=== PATIENT | male | born 1945 | race Caucasian/White ===

== ENCOUNTER 2017-07-10 16:59 | Emergency (ER) | payer OTHER ==
[~2017-07-10] VITALS: Ht 185.4 cm; Wt 88.5 kg
[2017-07-10] MEDS ORDERED: SINGULAIR 10 MG10 M1 PO (17:08)
[2017-07-10] MEDS ORDERED: FOSINOPRIL 10 M10 M1 PO (17:08)
[2017-07-10] MEDS ORDERED: ACYCLOVIR 400400 MG PO (17:08)
[2017-07-10] MEDS ORDERED: LIPITOR 20 MG T20 M1 PO (17:08)
[2017-07-10] MEDS ORDERED: UNICOMPLEX M TA1 TA1 PO (17:09)
[2017-07-10 17:23] LABS: HEMATOCRIT 39.7 % (42.0-52.0); HEMOGLOBIN 13.6 gm/dL (14.0-18.0); MCH 31.9 pg (26.0-34.0); MCHC 34.2 g/dL (28.0-37.0); MCV 93.2 fL (80.0-100.0); NUCLEATED RBCS 0 /100WBC; PLATELET COUNT* 188 thou/uL (150-400); RBC 4.26 mil/uL (4.50-6.00); RDW-CV 13.2 % (10.5-14.5); WBC 12.6 thou/uL (4.0-11.0)
[2017-07-10 17:51] LABS: CALCIUM 8.6 mg/dL (8.5-10.1); CREATININE 1.2 mg/dL (0.6-1.3); POTASSIUM 3.8 mmol/L (3.5-5.1)
[2017-07-10 17:56] LABS: ALBUMIN 3.8 g/dL (3.4-5.0); TOTAL PROTEIN 7.2 g/dL (6.4-8.2)
[2017-07-10 18:12] LABS: ABSOLUTE LYMPHOCYTES 1.3 thou/uL (0.8-5.3); ABSOLUTE MONOCYTES 0.8 thou/uL (0.0-1.2); ABSOLUTE NEUTROPHILS 10.6 thou/uL (1.6-8.1); ATYPICAL LYMPHS 8 %
[2017-07-10 18:13] LABS: PLATELET ESTIMATE ADEQUATE
[2017-07-10 18:40] LABS: URINE BLOOD TRACE (Negative); URINE CLARITY CLEAR; URINE COLOR YELLOW; URINE GLUCOSE-RANDOM NEGATIVE (Negative); URINE LEUKOCYTES-REFLEX NEGATIVE (Negative); URINE NITRITE-REFLEX NEGATIVE (Negative); URINE PROTEIN TRACE (Negative); URINE SPECIFIC GRAVITY 1.025 (1.005-1.030); URINE UROBILINOGEN 0.2 E.U./dl (0.2-1.0)
[2017-07-10 18:45] LABS: ACETEST (KETONE CONFIRMATORY) Negative (Negative); URINE BILIRUBIN 1+ (Negative); URINE KETONES 3+ (Negative)
[2017-07-10 18:55] LABS: INFLUENZA A ANTIGEN None Detected (None Detect); INFLUENZA B ANTIGEN None Detected (None Detect)
[2017-07-10] MEDS ORDERED: CIPRO500 MG PO (19:14)
[2017-07-10 19:18] VITALS: BP 119/59
[2017-07-11 09:16] LABS: ICTOTEST (BILI CONFIRMATORY) Negative (Negative)
== END 2017-07-10 19:19 | disposition home or self-care (01) ==
LOC: M.ERS 16:59
PROVIDERS: Physician Assistant
DX: N41.0 Acute prostatitis (principal); Z88.0 Allergy status to penicillin